=== PATIENT | male | born 1990 ===

== ENCOUNTER 2024-07-30 14:20 | Emergency (ER) | payer MEDICAID, OTHER ==
[~2024-07-30] VITALS: Ht 167.6 cm; Wt 76.7 kg
[2024-07-30] MEDS: KETOROLAC TROMETH 60MG/2ML VIAL IM ONE (15:35)
[2024-07-30] MEDS: DexAMETHasone SOD PHOS 10MG/1ML VIAL INJ IM ONE (15:35)
--- NOTE | 2024-07-30 15:36 | DVH ---
EXAM: CT HEAD WITHOUT CONTRAST INDICATION: Left-sided holiness region pain TECHNIQUE: CT of the head without intravenous contrast. Radiation Dose Information: CT Dose: CTDI volume is 57.38 mGy. Dose-length product is 1015.99 mGy*cm The dose indicators for CT are the volume Computed Tomography (CT) Dose Index (CTDIvol) and the Dose Length Product (DLP), and are measured in units of mGy and mGy-cm, respectively. These indicators are not patient dose, but values generated from the CT scanner acquisition factors. The report includes radiation exposure data for exposures received during this examination. COMPARISON: None FINDINGS: There is no evidence of acute intracranial hemorrhage, extra-axial collection, mass effect, midline s hift, herniation or hydrocephalus. The ventricles, sulci and cisterns are age appropriate. The zapata-white differentiation is intact. Patchy periventricular and subcortical white matter hypoattenuation is nonspecific but may be related to small vessel ischemic disease. The visualized paranasal sinuses and mastoid air cells are clear. The surrounding soft tissues and osseous structures are unremarkable. IMPRESSION: 1. No acute intracranial hemorrhage 2. No CT findings of territorial ischemia. 3. No subcutaneous masses in the left temporal region.
[2024-07-30 15:38] VITALS: BP 125/76; PULSE 68; RESP 20; TEMP 98.9; O2SAT 99
--- NOTE | 2024-07-30 16:15 | ED.PDOC ---
HPI (NEURO) HPI Comments 33-year-old male presents with a chief complaint of headache x 2 weeks with no associated symptoms. Patient reports that his pain is localized to his left temporal region, radiates to his lower jaw, and rates his pain a 7/10. Patient denies any trauma or injuries prior to onset of symptoms. Patient denies any photophobia, vision changes, or other neurological symptoms. No other symptoms or modifying factors present at this time. Vital signs were stable at arrival. Chief Complaint: Headache Time Seen by MD: 16:14 Primary Care Provider: GOLDY Reviewed Notes: Nurses Notes, Medications, Allergies Information Source: Patient Mode of Arrival: Ambulatory Severity: Moderate Headache Severity: Moderate Timing: Weeks Duration: Since onset Prehospital treatment: None Headache Location: Temporal Onset: At rest Circumstances: Spontaneous Symptoms: None History of: None Modifying factors: Nothing Associated Signs and Symptoms: Headache Past Medical History PAST MEDICAL HISTORY: Denies Surgical History: Denies all surgeries Family History Family History: Reviewed,noncontributory to illness Social History Smoker: Non-Smoker Alcohol: Denies ETOH Use Drugs: Denies Drug Use Lives In: Home Constitutional: denies: chills, diaphoresis, fatigue, fever, malaise, sweats, weakness, others EENTM: denies: blurred vision, double vision, ear bleeding, ear discharge, ear drainage, ear pain, ear ringing, eye pain, eye redness, hearing loss, mouth pain, mouth swelling, nasal discharge, nose bleeding, nose congestion, nose pain, photophobia, tearing, throat pain, throat swelling, voice changes, others Respiratory: denies: cough, hemoptysis, orthopnea, SOB at rest, shortness of breath, SOB with excertion, stridor, wheezing, others Cardiovascular: denies: chest pain, dizzy spells, diaphoresis, Dyspnea on exertion, edema, irregular heart beat, left arm pain, lightheadedness, palpitations, PND, syncope, others Gastrointestinal: denies: abdomen distended, abdominal pain, blood streaked bowels, constipated, diarrhea, dysphagia, difficulty swallowing, hematemesis, melena, nausea, poor appetite, poor fluid intake, rectal bleeding, rectal pain, vomiting, others Genitourinary: denies: burning, dysuria, flank pain, frequency, hematuria, incontinence, penile discharge, penile sore, pain, testicle pain, testicle swelling, urgency, others Neurological: reports: headache; denies: dizziness, fainting, left sided numbness, left sided weakness, numbness, paresthesia, pre-existing deficit, right sided numbness, right sided weakness, seizure, speech problems, tingling, tremors, weakness, others Musculoskeletal: denies: back pain, gout, joint pain, joint swelling, muscle pain, muscle stiffness, neck pain, others Integumetry: denies: bruises, change in color, change in hair/nails, dryness, laceration, lesions, lumps, rash, wounds, others Allergic/Immunocompromised: denies: Difficulty Healing, Frequent Infections, Hives, Itching, others Hematologic/Lymphatic: denies: anemia, blood clots, easy bleeding, easy bruising, swollen glands, others Endocrine: denies: excessive hunger, excessive sweating, excessive thirst, excessive urination, flushing, intolerance to cold, intolerance to heat, unexplained weight gain, unexplained weight loss, others Psychiatric: denies: anxiety, bipolar disorder, depression, hopeless, panic disorder, schizophrenia, sleepless, suicidal, others All Other Systems: Reviewed and Negative Physical Exam General Appearance: Moderate Distress (Moderate distress due to left-sided temporal region pain), Normal HEENT: Head (Arterial pulsation noted to left temporal region on palpation. No edema or ecchymosis noted. No skull depression or deformity.), Normal ENT Inspection, Pharynx Normal, TMs Normal Neck: Full Range of Motion, Non-Tender, Normal, Normal Inspection Respiratory: Chest Non-Tender, Lungs Clear, No Accessory Muscle Use, No Respiratory Distress, Normal Breath Sounds Cardiovascular: No Edema, No JVD, No Murmur, No Gallop, Normal Peripheral Pulses, Regular Rate/Rhythm Breast Exam: Deferred Gastrointestinal: No Organomegaly, Non Tender, No Pulsatile Mass, Normal Bowel Sounds, Soft Genitalia: Deferred Pelvic: Deferred Rectal: Deferred Extremities: No calf tenderness, Normal capillary refill, Normal inspection, Normal range of motion, Non-tender, No pedal edema Musculoskeletal : Apperance: Normal Neurologic: Alert, No Motor Deficits, Normal Affect, Normal Mood, No Sensory Deficits Cerebellar Function: Normal Reflexes: Normal Skin: Dry, Normal Color, Warm Lymphatic: No Adenopathy Was a procedure done? Was a procedure done?: No Differential Diagnosis (SZ) Seizure: N/A Headache: Cluster, Trigeminal Neuralgia, Other (Temporal arteritis, headache) X-Ray, Labs, Meds, VS Vital Signs Date Time Temp Pulse Resp B/P (MAP) Pulse Ox O2 Delivery O2 Flow Rate FiO2 07/30/24 15:39 Room Air* 0 21 07/30/24 15:38 98.9 75 16 125/76 (92) 99 98.9 07/30/24 14:29 99.2 75 16 130/76 (94) 98 Current Medications Medications (Trade) Dose Ordered Sig/Ashley Route Start Time Stop Time Status Last Admin Dexamethasone Sodium Phosphate (Decadron Injection) 10 mg ONCE ONCE IM 07/30/24 15:15 07/30/24 15:18 DC 07/30/24 15:35 Ketorolac Tromethamine (Toradol Injection) 30 mg ONCE ONCE IM 07/30/24 15:15 07/30/24 15:18 DC 07/30/24 15:35 X-Ray, Labs, Meds, VS Comment All studies performed the ED were evaluated by me personally. CT studies of the head was unremarkable for any acute intracranial mass. No CT findings of territorial ischemia or subcutaneous masses in the left temporal region. Based on initial presentation, patient may be suffering from temporal arteritis. Patient will be sent home with pain medication and steroids advised to follow up with primary care provider for continued evaluation and management. Patient require a neurologic referral. Time of 1ST Reevaluation: 16:54 Reevaluation 1ST: Improved Consultation: PCP, Neurology Patient Education/Counseling: Diagnosis, Treatment, Prognosis Family Education/Counseling: Diagnosis, Treatment, Prognosis Departure 1 Departure Time of Disposition: 16:54 Impression: Primary Impression: Temporal arteritis Disposition: 01 HOME / SELF CARE / HOMELESS Condition: Stable Additional Instructions: Advise utilizing prednisone as directed. Patient may require additional prednisone prescriptions and therefore, patient needs to follow up with primary care provider. e-Prescriptions Ibuprofen Micronized (Ibuprofen) 800 Mg Tab 800 MG PO Q8HP PRN, #20 TAB Prov: TEAGAN VARGAS PAC 07/30/24 Prednisone (Prednisone) 20 Mg Tab 60 MG PO DAILY for 10 Days, #30 MG Prov: TEAGAN VARGAS PAC 07/30/24 Discharged With: Self, Friend Critical Care Note Critical Care Time?: No Stability Stability form required: No I personally scribed for TEAGAN VARGAS PAC ([email or web address]) on 07/30/24 at 16:15. Electronically submitted by Octavio Penaloza ([email or web address]). TEAGAN VARGAS PAC Jul 30, 2024 16:15
[2024-07-30] MEDS ORDERED: IBUP-1455 PO (16:56)
[2024-07-30] MEDS ORDERED: PRED20TA2 PO (16:56)
== END 2024-07-30 17:03 | disposition home or self-care (01) ==
LOC: ER 14:20
DX: M31.6 Other giant cell arteritis (principal)
CPT/HCPCS: 70450; 96372; 99285; J1100; J1885